=== PATIENT | male | born 1995 | race Caucasian/White ===

== ENCOUNTER 2017-12-21 18:11 | Emergency (ER) | payer OTHER ==
[2017-12-21 18:17] VITALS: RESP 16; TEMP 97.7; O2SAT 98
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
[2017-12-21 19:25] VITALS: BP 118/73; PULSE 63
== END 2017-12-21 19:22 | disposition home or self-care (01) ==
DX: S69.91XA Unspecified injury of right wrist, hand and finger(s), initial encounter (principal); W22.8XXA Striking against or struck by other objects, initial encounter
CPT/HCPCS: L3807

== ENCOUNTER → 2019-02-19 | Outpatient (CLI) | payer OTHER | LOC: BMCIMAGING 12:43 | DX: M25.531 Pain in right wrist (principal) ==